=== PATIENT | male | born 1970 | race Two or more races ===

== ENCOUNTER 2016-11-03 10:25 | Emergency (ER) | payer OTHER ==
[~2016-11-03] VITALS: Ht 172.7 cm; Wt 85.7 kg
[~2016-11-03 10:25] MED LIST: ATORVASTATIN CA20 MG ORAL; BENAZEPRIL HCL10 MG ORAL; DIABETA5 MG ORAL; METFORMIN HCL1000 M1 ORAL
[2016-11-03 11:58] VITALS: BP 114/74
[2016-11-03 12:47] VITALS: BP 126/82
[2016-11-03 12:48] VITALS: BP 126/82
--- NOTE | 2016-11-04 20:14 | Emergency Room Report ---
History of Present Illness General Chief Complaint: General Complaint Source: Patient Present Illness HPI 46 yo M sent in by his neurologist/PMD for workup. Pt states that for 2 years he has had intermittent seizure like activity, aphasia, headaches. He has been worked up with 3 lumbar punctures which have yielded nothing. He had a recent MRI performed by his neurologist which had "hypodense regions". Pt has been on seizure medications but denies having a seizure for a few months. States he still gets intermittent bilateral throbbing headaches, but currently has no licea. Patient came to ED as neurologist wrote on note "needs LP and possible brain biopsy" Pt currently denying any pain, licea, n/v, numbness/weakness Allergies: Coded Allergies: NO KNOWN ALLERGIES (Unverified Allergy, Unknown, 02/13/15) Patient History Past Medical History: see triage record Past Surgical History: none Pertinent Family History: none Nursing Documentation-PMH Hx Hypertension: Yes Hx Diabetes: Yes Review of Systems Neurological: Reports: headache, numbness All Other Systems: negative except mentioned in HPI Physical Exam Vital Signs Date Time Temp Pulse Resp B/P Pulse Ox O2 Delivery O2 Flow Rate FiO2 11/03/16 10:30 98.1 71 15 143/77 97 Room Air Sp02 EP Interpretation: reviewed, normal General Appearance: normal inspection, well appearing, no apparent distress, alert, GCS 15, non-toxic, other - awake and alert, nad, conversing at bedside Head: normocephalic, atraumatic Eyes: bilateral eye EOMI, bilateral eye PERRL, bilateral eye normal inspection ENT: normal ENT inspection, normal pharynx, normal voice, moist mucus membranes Neck: normal inspection, full range of motion, supple, no bony tend Respiratory: normal inspection, lungs clear, normal breath sounds, no respiratory distress, no retraction, no wheezing, speaking full sentences, chest symmetrical Cardiovascular #1: normal inspection, regular rate, rhythm, no edema, normal capillary refill Gastrointestinal: normal inspection, non tender, soft, non-distended, no guarding Musculoskeletal: normal inspection, back normal, normal range of motion, non- tender Neurologic: normal inspection, alert, oriented x3, responsive, licensed and certified midwife III-XII nml as tested, motor strength/tone normal, sensory intact, normal gait, speech normal Psychiatric: normal inspection, judgement/insight normal, memory normal Skin: normal inspection, normal color, no rash, warm/dry, well hydrated, normal turgor Medical Decision Making Diagnostic Impression: Primary Impression: Chronic focal neurological deficit Additional Impression: Headache, chronic daily ER Course 46 yo M with 2 years of neurological complaints patient is here sent by pmd/neurologist for "further workup" - LP and brain biopsy patient is asymptomatic discussed with patient -- he does not want an LP as he states he had 3 in the past which were all negative also patient is not having any symptoms at this time made attempts to call patients neurologist however did not answer discussed with patients pmd - patient is refusing lp at this time. there is no neurosurgery at [facility] to perform elective brain biopsy. made aware and we decided to have patient follow up outpatient. disposition: patient is to be discharged home and close follow up with neurologist patient agrees with plan. Last Vital Signs Date Time Temp Pulse Resp B/P Pulse Ox O2 Delivery O2 Flow Rate FiO2 11/03/16 12:48 98.1 65 19 126/82 98 Room Air Disposition: HOME, SELF-CARE Condition: Stable Patient Instructions: Headache and Arthritis Additional Instructions: PLEASE FOLLOW UP WITH YOUR PRIMARY CARE DOCTOR AND NEUROLOGIST WITHIN 3 DAYS Matthew Briceño M.D. Nov 04, 2016 20:14
== END 2016-11-03 12:51 | disposition home or self-care (01) ==
LOC: EMR 11:07
DX: R51 Headache (principal); R29.818 Other symptoms and signs involving the nervous system; I10 Essential (primary) hypertension; E11.9 Type 2 diabetes mellitus without complications
CPT/HCPCS: 99282